=== PATIENT | female | born 1960 | race Caucasian/White ===

== ENCOUNTER 2021-07-27 09:53 | Outpatient (REF) | payer OTHER, SELFPAY ==
--- NOTE | ~2021-07-27 | CT_ITS ---
EXAMINATION: CT CHEST SCREENING CLINICAL INFORMATION: Personal history of nicotine dependence. COMPARISON: CT chest 07/17/2020. TECHNIQUE: Multidetector volumetric CT imaging of the chest is performed without contrast using low dose technique. Additional 2D coronal and sagittal reformatted images and axial 3D maximum intensity projection (MIP) images are generated on the CT workstation. This CT examination was performed using dose optimization techniques as appropriate, variously including the following: Automated exposure control. Adjustment of mA and/or kV according to patient size (this includes techniques or standardized protocols for targeted exams where dose is matched to indication/reason for exam; i.e. extremities or head). Use of iterative reconstruction technique. DLP: 44 mGy-cm FINDINGS: LUNGS: The lungs are well expanded and clear of acute pneumonic process. There are multiple calcified 1-2 mm nodules seen scattered throughout both lungs, the largest nodule in the right upper lobe measuring 2 mm axial image 17/5. There are no noncalcified nodules seen. There is a plate-like atelectasis of left lower lobe. MEDIASTINUM: The heart size and the great vessels are normal in caliber. There is no pericardial effusion. There are no coronary artery calcifications present. The central trachea and the bronchi are widely patent. No abnormal size mediastinal or hilar lymph nodes seen. PLEURA: There is no pleural effusion. No pleural mass or thickening. AXILLA: No lymphadenopathy. UPPER ABDOMEN: Visualized liver, spleen, pancreas and bilateral adrenal glands are unremarkable. OSSEOUS STRUCTURES: Unremarkable. CT/CT lung screening IMPRESSION: Bilateral scattered 1-2 mm calcified lung nodules. No noncalcified nodules or acute consolidation seen. Minimal atelectatic changes in left lung base. ASSESSMENT: Lung-RADS category 2: Benign. RECOMMENDATION: Low-dose annual CT chest.
== END 2021-07-27 09:54 | disposition home or self-care (01) ==
LOC: HO.CT 09:53
PROVIDERS: Visit Provider Physician Assistant Medical
DX: Z12.2 Encounter for screening for malignant neoplasm of respiratory organs (principal); Z87.891 Personal history of nicotine dependence
CPT/HCPCS: 71271

== ENCOUNTER 2022-08-16 09:44 | Outpatient (REF) | payer OTHER, SELFPAY | END 2022-08-16 09:45 | disposition home or self-care (01) | LOC: HO.CT 09:44 | PROVIDERS: Visit Provider Physician Assistant Medical | DX: Z87.891 Personal history of nicotine dependence (principal) | CPT/HCPCS: 71271 ==

== ENCOUNTER 2024-02-28 09:07 | Outpatient (REF) | payer OTHER, SELFPAY ==
--- NOTE | ~2024-02-28 | CT_ITS ---
EXAMINATION: CT CHEST SCREENING CLINICAL INFORMATION: Personal history of nicotine dependence. The patient has a 48 pack-year history of smoking, having quit 15 years ago. COMPARISON: CT chest 08/16/2022. TECHNIQUE: Multidetector volumetric CT imaging of the chest is performed without contrast using low dose technique. Additional 2D coronal and sagittal reformatted images and axial 3D maximum intensity projection (MIP) images are generated on the CT workstation. This CT examination was performed using dose optimization techniques as appropriate, variously including the following: *Automated exposure control *Adjustment of mA and/or kV according to patient size (this includes techniques or standardized protocols for targeted exams where dose is matched to indication/reason for exam; i.e. extremities or head) *Use of iterative reconstruction technique DLP: 39 mGy-cm FINDINGS: LUNGS: Multiple small pulmonary nodules are seen, the majority of which are calcified and stable. No concerning or worrisome nodules are seen. Mild emphysematous changes are present. Mild peribronchial thickening is seen. MEDIASTINUM: The mediastinum is normal. CORONARY ARTERY CALCIFICATION: None visualized on this study. PLEURA: There is no pleural effusion. No pleural mass or thickening. AXILLA: No lymphadenopathy. UPPER ABDOMEN: Unremarkable. OSSEOUS STRUCTURES: Unremarkable. CT/CT lung screening IMPRESSION: Unchanged benign-appearing micronodules many of which are calcified. No evidence to suggest malignancy. ASSESSMENT: Lung-RADS category 2: Benign RECOMMENDATION: Routine annual low-dose CT screening in 12 months.
== END 2024-02-28 09:08 | disposition home or self-care (01) ==
LOC: HO.CT 09:07
PROVIDERS: PCP Internal Medicine; Visit Provider Nurse Practitioner Family
DX: Z12.2 Encounter for screening for malignant neoplasm of respiratory organs (principal); Z87.891 Personal history of nicotine dependence
CPT/HCPCS: 71271

== ENCOUNTER 2025-05-20 08:00 | Outpatient (REF) | payer MEDICARE, SELFPAY ==
--- NOTE | ~2025-05-20 | CT_ITS ---
EXAMINATION: CT LUNG SCREENING HISTORY: Z87.891 - Personal history of nicotine dependence TECHNIQUE: Low dose axial images were obtained from the sternal notch to upper abdomen without IV contrast per standard departmental protocol. Sagittal and coronal reformatted images were also obtained and reviewed. One or more of the following techniques was used for dose reduction: Automated exposure control, adjustment of the mA and/or kV according to patient size, use of iterative reconstruction technique. DLP: 44 mGy-cm COMPARISON: Comparison is made with the prior examination dated 02/28/2024. FINDINGS: Lung nodules: Again seen are numerous tiny calcified granulomas in both lungs. No suspicious noncalcified nodules are identified. Emphysema: none Coronary Calcification: mild Aortic Arch Calcification: mild Potentially Significant Incidentals : none Additional Chest Findings: There is no pleural or pericardial effusion. No mediastinal or axillary lymphadenopathy is identified. Visualized upper abdomen: The visualized portions of the liver, spleen, and adrenals have an unremarkable unenhanced appearance. CT/CT lung screening IMPRESSION: No suspicious pulmonary nodules are identified. LUNG-RADS ASSESSMENT: Lung-RADS 2: Benign MANAGEMENT: Continue annual screening with LDCT in 12 months Category S: N/A Electronically signed by: Fernando Crawford MD 05/20/2025 08:51 AM EDT
--- OUTSIDE RECORDS SUMMARY | 2025-05-20 08:03 | XMS_ITS | Clinical Summary ---
Author Organization [address] Address [address] [place] [phone] Phone Care Team Providers Care Customer Account Representative Name Role Phone Nallely Naik MD Primary Care Prov ider Allergies Active Allergy Reactions Criticality Noted Date Comments Cephalexin Hcl 12/27/2005 Clarithromycin 12/27/2005 Clindamycin Hcl 04/04/2023 Clindamycin Phosphate 01/01/2012 Rash, throat felt like it was closing Erythromycin 12/27/2005 Cyclobenzaprine 01/01/2025 Nightmares, hallucinations Hydrocodone-Guaifenesin 04/04/2023 Morphine, oxycodone, hydrocodone, meloxivam, tramadol Morphine 07/08/2009 Other reaction(s): GI Upset Sulfa (Sulfonamide Antibiotics) Hives 02/02/2010 Tetracycline 09/26/2007 Medications calcium carbonate/vitam in D3 (CALCIUM WITH VITAMIN D3 ORAL) Take by mouth. Activ e miscellaneous medical supply misc Inhale by mouth. Regional pressure 5-15 Active aspirin (Vazalore) 81 mg capsule Take 81 mg by mouth 1 (one) time each day. 04/04/20 23 Active clobetasoL (TEMOVATE) 0.05 % cream To affected area 2-3 times daily for no more than 2-3 weeks, then only using on the weekends prn 08/21/20 23 Active cycloSPORINE (Restasis MultiDose) 0.05 % drops 09/11/20 16 Active hydrocortisone 2.5 % cream Apply topically 2 (two) times a day if needed. TO EARS 05/22/20 23 Active mometasone (ELOCON) 0.1 % ointment 3 (three) times a week. APPLY A THIN LAYER 08/12/20 24 Active naproxen sodium 220 mg capsule Aleve Activ e sodium fluoride-pot nitrate 1.1-5 % paste dental paste See administration instructions. 04/23/20 24 Active rosuvastatin (CRESTOR) 20 mg tablet Take 1 tablet (20 mg total) by mouth 1 (one) time each day. 90 tablet 1 11/14/19 25 Active zolpidem (AMBIEN) 10 mg tabletIndicatio ns:Insomnia, unspecified type Take 1 tablet (10 mg total) by mouth at bedtime as needed for sleep. Max Daily Amount: 10 mg 28 tablet 04/23/20 25 025 Active zolpidem (AMBIEN) 10 mg tabletIndicatio ns:Insomnia, unspecified type Take 1 tablet (10 mg total) by mouth at bedtime as needed for sleep. Max Daily Amount: 10 mg 28 tablet 03/26/20 25 025 Discontin ued(Reord er) Active Problems Problem Noted Date Diagnosed Date Hyperlipidemia 07/28/2023 Coronary artery disease 04/04/2023 Overview (10/15/2024): Improved left main 50%, mid LAD 35%, 30% diagonal vessel and 30% mid circumflex. Normal RCA. Normal LVEF. Intolerant to beta-blockers. Last Assessment & Plan: This delightful 63-year-old female has stable coronary disease with some decreased exercise tolerance for which she will perform an exercise treadmill test. Have a fairly low suspicion for any flow-limiting coronary lesions. I went through the rationale for continued aspirin and low-dose statin. Her lipid profile is excellent. I will check a homocystine and LP(a) to see if 1 of these is her primary risk factor given the fairly benign lipid profile. She will continue a healthy Mediterranean style diet trip, treatment of her sleep apnea and regular exercise Ventricular premature complexes 03/31/2023 Overview (10/15/2024): Last Assessment & Plan: Minimal atrial or ventricular ectopies from a symptomatic standpoint and no findings on her current ECG. Ambulatory monitoring is indicated at this point. Lichen sclerosus 10/20/2022 Overview (10/15/2024): Last Assessment & Plan: Reviewed findings with patient. I counseled her that I agree with Dr. Cain that she has findings consistent with lichen sclerosus. I showed her with a mirror so that she could understand. She reported she had never been using the steroid there as she wasn't really sure of what she was looking at. I explained this is likely an autoimmune inflammatory condition and that the mainstay of therapy is use of maintenance topical steroid. I explained that women with lichen sclerosus are at about a 5 fold increased risk of SCC over the general population. Explained that the purpose of the steroid is to prevent symptoms, further scarring, and squamous cell cancer of the vulva. I also explained the importance of regular follow up to ensure she has no evidence of precancerous or cancerous changes and that she is not having side effects from her medication. I reviewed areas of application and amount of medication to use. She voiced understanding. She was given [facility] information re: LS today and will call with any questions. She will continue mometasone, but will apply to the vulvar areas affected as she was not previously. Asked her to do this three times weekly. Residual hemorrhoidal skin tags 10/20/2022 Overview (10/15/2024): Last Assessment & Plan: I counseled her nothing to do. Keep stools soft. Use prn topical OTC medications. Lidocaine prn. Vaginal atrophy 10/20/2022 Overview (10/15/2024): Last Assessment & Plan: Estrace as noted above. Vulvar atrophy 10/20/2022 Overview (10/15/2024): Last Assessment & Plan: I counseled the patient re: relative safety of topical estradiol as not significantly systemically absorbed. I explained that the highest absorption is likely in the first two weeks while the skin remains thin and atrophic. She was open to this. I recommended pt treat with Estrace cream which should be applied with her finger at the introitus nightly x 2 weeks, then MWF for maintenance. I reviewed amount and area of application and need for ongoing use for effect. I reviewed relative safety of topical localized estradiol therapy. Rotator cuff injury, right, initial encounter Overview (10/15/2024): Status post repair 10/02/2020 Osteoporosis 10/09/2019 Overview (10/15/2024): DEXA 10/07/19 Fibromyalgia 09/20/2019 Overview (10/15/2024): Dr. Jones High serum vitamin B12 05/24/2016 Pilonidal cyst 11/07/2015 Overview (10/15/2024): With abscess and excision Eczema 05/26/2015 CRUZ (obstructive sleep apnea) 12/29/2014 Overview (10/15/2024): onCPAP Last Assessment & Plan: Moderate sleep apnea Compliance report 94% more than 4 hours meeting DME requirements ESS 3 AHI 1.2 Return to clinic in 1 year Herpes simplex disease 09/07/2012 Insomnia 01/21/2008 TMJ syndrome 01/05/2007 Plantar fascial fibromatosis 03/13/2006 Encounters Date Type Department Care Team Description 04/29/2025 9:30 AM EDT Office Visit Adult Medicine [facility] [address] [place] [phone] Dali Becerril PA Breast mass in female (Primary Dx) 04/29/2025 Telephone Adult [facility] [address] [place] [address] Nallely Kelly MD Breast Mass 04/03/2025 Telephone Adult Medicine [facility] [address] [place] [address] Nallely Kelly MD faxed record 04/02/2025 Telephone Adult [facility] [address] [place] [phone] Nallely Guadarrama [place] [facility] 03/25/2025 8:24 AM EDT - 03/25/2025 11:59 PM EDT Hospital Encounter [facility] Bone Density [address] [place] [address] Other osteoporosis, unspecified pathological fracture presence Discharge Disposition: Home or Self Care from Last 3 Months Immunizations Name Administration Dates Next Due Hepatitis B (V[place]-T-Ljirs , Recombivax HB-Adult) 19yo and older 01/13/2022,08/17/2021,07/16/2021 Influenza trivalent, 0.5mL, preservative free (Fluarix; FluLaval; Fluzone) ages 6mo and older (Afluria) 3 years and older 07/24/2024,08/15/2023,08/04/2018,2013,08/29/2013,09/07/2012,09/22/2005 Influenza, Unspecified 08/29/2021,01/01/2018 MMR, measles mumps and rubel la Live (Priorix; M-M-R II) 12mo and older 11/22/2021,03/26/2019 Moderna SARS-CoV-2 COVID-19, mRNA, LNP-S, preservative free 05/22/2022,09/25/2021,03/16/2021,2020 Td Tetanus diptheria (Tdvax) 7yo and older 02/20/2011 Td, Unspecified 07/21/2003 Tdap Tetanus diptheria acell ular pertussis (Boostrix; Adacel) 7yo and older 11/15/2021 Zoster recombinant (Shingrix ) 19yo and older 10/06/2019,07/23/2019 Surgical History Surgery Date Site/Laterality Comments SECTION PROCEDURE: NM DELIVERY ONLY TONSILLECTOMY PROCEDURE: HISTORICAL TONSILLECTOMY OTHER SURGICAL HISTORY PROCEDURE: NM ARTHRS WRST EXC&/RPR TRIANG FIBROCART&/JOINT; COMMENT: both wrists - cyst on left OTHER SURGICAL HISTORY PROCEDURE: NM RHINOPLASTY PRIMARY W/MAJOR SEPTAL REPAIR; COMMENT: deviated septum repair COLONOSCOPY 03.03.10 PROCEDURE: HISTORICAL COLONOSCOPY COLPOSCOPY 1985 PROCEDURE: NM COLPOSCOPY ENTIRE VAGINA W/CERVIX IF PRESENT Medical History Medical History Date Comments Headache(784.0) 03/13/2006 DX:Headache(784. 0) Anxiety state, unspecified DX:An xiety state, unspecified; COMMENT: 02/22/12 pt feels this is resolved Insomnia 01/21/2008 DX:Insomnia; COM MENT: 02/22/12 continues History of shingles 2011 DX:History o f shingles Plantar fascial fibromatosis 03/13/2006 DX: Plantar fascial fibromatosis PMDD (premenstrual dysphoric disorder) 02/07/2008 DX:PMDD (premenstrual dyspho mari disorder) Eczema 05/26/2015 DX:Eczema CRUZ (obstructive sleep apnea) 12/29/2014 DX :CRUZ (obstructive sleep apnea) TMJ syndrome 01/05/2007 DX:TMJ syndrome Pilonidal cyst 11/07/2015 DX:Pilonidal cys t; COMMENT: With abscess and excision Gout 03/13/2006 DX:Gout High serum vitamin B12 05/24/2016 DX:High s diane vitamin B12 Osteoporosis 10/09/2019 DX:Osteoporosis; COMMENT: DEXA 10/07/19 Family History Medical History Relation Name Comments Hypertension Brother 1 Heart attack Father hypertension di ed 72 Stomach cancer Maternal Grandmother Diabetes Mother NH, stroke 72 Arthritis Sister 1 knees Asthma Son 1 Alcohol abuse Son 2 Breast cancer Neg Hx Cancer of Small Bowel Neg Hx Colon cancer Neg Hx Kidney cancer Neg Hx Ovarian cancer Neg Hx Pancreatic cancer Neg Hx Uterine cancer Neg Hx Relation Name Status Comments Brother 1 Brother 2 Alive Father Maternal Grandfather Maternal Grandmother Mother Paternal Grandmother Sister 1 Sister 2 Alive Son 1 Son 2 Social History Tobacco Use Types Packs/Day Years Used Date Smoking Tobacco: Former Cigarettes 0.5 21.3 1 - 12/14/1998 Smokeless Tobacco: Never Tobacco Cessation:Counseling Given: Not Answered Alcohol Use Standard Drinks/Week Comments No 0 (1 standard drink = 0.6 oz pur e alcohol) Housing Instability Answer Date Recorde d Are you worried that in the next 2 months you may not have stable housing? No 01/08/2025 Food Access & Nutrition Answer Date Rec orded Do you have access to a vari ety of food including fruits and vegetables? Yes 01/08/2025 Access to Healthcare Answer Date Record ed Within the last 3 months, ho w many times did you visit the emergency department for your medical care? 0 01/08/2025 Health Literacy Answer Date Recorded How often do you need to hav e someone help you when you read instructions, pamphlets, or other written material from your doctor or pharmacy? Never 01/08/2025 Caregiver: How often do you need to have someone help you when you read instructions, pamphlets, or other written material from your doctor or pharmacy? Not on file 01/08/2025 Financial Risk Answer Date Recorded How hard is it for you to pa y for the very basics like food, housing, medical care, and air conditioning / heating? Not very hard 01/08/2025 Transportation Answer Date Recorded Has the lack of transportati on kept you from meetings, work, or from getting things needed for daily living? No Has the lack of transportati on kept you from medical appointments or from getting medications? No 01/08/2025 Social Isolation Answer Date Recorded How often do you feel lonely or isolated from th ose around you? Never 01/08/2025 Food Risk Answer Date Recorded Within the past 12 months we worried whether our food would run out before we got money to buy more. Never true 01/08/2025 Within the past 12 months th e food we bought just didn't last and we didn't have money to get more. Never true 01/08/2025 Dependent Care Answer Date Recorded Do you need help finding or paying for care for your loved ones. For example, child care specialist or elderly care for an older adult? No 01/08/2025 Education Answer Date Recorded Do you think completing more education or training, like finishing a GED, going to college, or learning a trade, would be helpful for you? No 01/08/2025 Employment and Income Answer Date Recor ded During the last four weeks, have you been actively looking for work? No 01/08/2025 Living Situation Answer Date Recorded What is your living situation? 0 01/08/2025 Comments No Sex and Gender Information Value Date Recorded Sex Assigned at Female 02/17/2025 8:06 AM EDT Legal Sex Female 1:01 AM EST Gender Identity Female 02/17/2025 8:06 AM EDT Sexual Orientation Not on file Obstetrics History Last Filed Vital Signs Vital Sign Reading Time Taken Comments Blood Pressure 124/68 04/29/2025 9:43 AM EDT Pulse 72 04/29/2025 9:43 AM EDT Temperature 36.1 C (97 F) 04/29/2025 9:43 AM EDT Respiratory Rate - - Oxygen Saturation - - Inhaled Oxygen Concentration - - Weight 61.1 kg (134 lb 9.6 oz) 04/29/2025 9:43 A M EDT Height 160 cm (5' 3 ) 04/29/2025 9:43 AM EDT Body Mass Index 23.84 04/29/2025 9:43 AM EDT Plan of Treatment Upcoming Encounters Date Type Department Care Team (Late st Contact Info) Description 06/10/2025 9:00 AM EDT Office Visit Pulmonolgy - [place] [address] [facility] [address] [place] [phone] Mp Finn MD 175 [facility] [address] [place] [address] 07/01/2025 8:45 AM EDT Office Visit Adult Medicine - [place] [address] [place] [phone] Lilliana Huerta PA [address] [place] [address] 08/12/2025 9:25 AM EDT Office Visit [facility] [address] [facility] [address] [place] [phone] Hieu Fry MD 300 [facility] [address] [place] [address] Health Maintenance Due Date Last Done Comments Medicare Annual Wellness Visit 10/21/2022 COVID-19 Vaccine ( season) 2024 07/19/2024, 08/18/2023, 05/22/2022, Additional history exists Influenza Vaccine (#1) 2025 , 08/15/2023, 08/29/2021, Additional history exists Depression Screening 01/01/2026 01/01/2025 Falls Risk Assessment 01/01/2026 01/01/2025 Hypertension/CHF/CAD Annual BMP Blood Test 02/13/2026 02/13/2025, 08/08/2023 Breast Cancer Screening 05/13/2026 05/13/2024, 04/07 Cervical Cancer Screening: HPV 08/20/2026 08/20/2021 Cholesterol Screening (Lipid Panel) 02/13/2030 02/13/2025, 01/17/2024, 02/19/2011 DTaP,Tdap,and Td Vaccines (6 - Td or Tdap) 11/15/2031 11/15/2021, 02/23/2011, 02/20/2011, Additional history exists Colorectal Cancer Screening: Colonoscopy 08/14/2034 08/14/2024 RSV Immunization Adult Patients (1 - 1-dose 75+ series) 2034 Osteoporosis Screening (Bone Density Screening) 03/25/2035 03/25/2025, 01/10/2024, 10/12/2021, Additional history exists Zoster Vaccines Completed 10/06/2019, 07/23/2019 Hepatitis C Screening Completed 07/06/2021 MMR Vaccines Aged Out 11/22/2021, 03/26/2019 No lo nger eligible based on patient's age to complete this topic Hepatitis B Vaccines Completed 01/13/2022, 08/17/2021, 07/16/2021 Social Influencers of Health Screening Discontinued 01/08/2025 HIB Vaccines Aged Out No longer eligi ble based on patient's age to complete this topic HPV Vaccines Aged Out No longer eligi ble based on patient's age to complete this topic Hepatitis A Vaccines Aged Out No long er eligible based on patient's age to complete this topic IPV Vaccines Aged Out No longer eligi ble based on patient's age to complete this topic Meningococcal ACWY Vaccine Aged Out N o longer eligible based on patient's age to complete this topic Meningococcal B Vaccine Aged Out No l onger eligible based on patient's age to complete this topic Pneumococcal Vaccine: 50+ Years Discontinued RSV Immunization Patients Under 20 months Aged Out No longer eligible based on patient's age to complete this topic Varicella Vaccines Aged Out No longer eligible based on patient's age to complete this topic Procedures Procedure Name Priority Date/Time Associated Diagnosis Comments DRUG ABUSE SCREEN EXPANDED WITH REFLEX CONFIRMATION, URINE Routine 04/03/2025 2:53 PM EDT Chronic pain syndrome BD BONE DENSITY DXA AXIAL SKELETON Routine 03/25/2025 8:53 AM EDT Other osteoporosis, unspecified pathological fracture presence BASIC METABOLIC PANEL Routine 02/13/2025 8:46 AM EDT Routine general medical examination at a health care facility LIPID PANEL WITH REFLEX TO DIRECT LDL Routine 02/13/2025 8:46 AM EDT Routine general medical examination at a health care facility HM COLONOSCOPY Routine 08/14/2024 HM HPV Routine 08/20/2021 HM HEPATITIS C SCREENING Routine 07/06/2021 from Last 3 Months or Most Recently Relevant to Health Maintenance Results * Drug abuse screen expanded with reflex confirmation, urine (04/03/2025 2:53 PM EDT) Amphetamine Screen, Ur Negative Negative LAB CHEMISTRY METHOD 04/04/2025 4:31 AM [facility] Comment:Certain OTC medicati ons containing ephedrine, phenylephrine, pseudoephedrine and phenylpropanolamine can cause false positive results. Barbiturate Screen, Ur Negative Negative LAB CHEMISTRY METHOD 04/04/2025 4:31 AM [facility] Benzodiazepine Screen, Ur Negative Negative LAB CHEMISTRY METHOD 04/04/2025 4:31 AM [facility] Cocaine Screen, Ur Negative Negative LAB CHEMISTRY METHOD 04/04/2025 4:31 AM [facility] Opiate Screen, Ur Negative Negative LAB CHEMISTRY METHOD 04/04/2025 4:31 AM [facility] Cannabinoid (THC) Screen, Ur Negative Negative LAB CHEMISTRY METHOD 04/04/2025 4:31 AM [facility] Comment:Specimens from patie nts taking pantoprazole sodium (Protonix) have been shown to produce false positive results. Fentanyl, Ur Negative Negative LAB CHEMISTRY METHOD 04/04/2025 4:[address] [facility] Oxycodone Screen, Ur Negative Negative LAB CHEMISTRY METHOD 04/04/2025 4:[address] [facility] Urine Urine specimen obtained by clean catch procedure / Unknown Non-blood Collection / Unknown 04/03/2025 2:53 PM EDT 04/03/2025 2:[address] [facility] - 04/04/2025 4:31 AM EDT Assay cutoffs: Amphetamines 1000 ng/mL Barbiturates 200 ng/mL Benzodiazepines 200 ng/mL Cocaine 300 ng/mL Fentanyl 1 ng/mL Opiates 300 ng/mL Oxycodone 100 ng/mL THC 50 ng/mL Semi-quantitative assay for screening purposes only. Unconfirmed screening result should not be used for non-medical purposes. *POSITIVE RESULTS ARE AUTOMATICALLY SENT FOR ALTERNATE METHOD CONFIRMATION* us Nallely Naik MD LAB URINE ORDERABL ES Final Result [facility] [address] [place] [address], * BD Bone Density DXA Axial Skeleton (03/25/2025 8:53 AM EDT) Anatomical Region Laterality Modality Wrist, Hip, L-spine Bone Densito metry 03/25/2025 11:4 4 AM EDT Impressions 03/25/2025 11:46 AM EDT 1. Osteoporosis. There has been a decrease of 0.9% in bone mineral density in the lumbar spine since the prior examination of 01/10/2024. There has been a decrease of 2.2% in bone mineral density in the right femur and a decrease of 4.3% in bone mineral density in the left femur. 2. FRAX analysis yields a 10-year probability of major osteoporotic fracture of 17.7% and a 10-year probability of hip fracture of 5.7%. Code 90616 -------- FINAL REPORT -------- Dictated By: Law Hale Dictated Date: 03/25/2025 11:44 ET Assigned Physician: Law Hale Reviewed and Electronically Signed By: Law Hale Signed Date: 03/25/2025 11:46 ET Workstation ID: [id number] Transcribed By: Self Edit Transcribed Date: 03/25/2025 11:44 ET Narrative 03/25/2025 11:46 AM EDT HISTORY: The patient is a 64-year-old postmenopausal female with clinical concern for metabolic bone disease. FINDINGS: Dual energy x-ray absorptiometry of the lumbar spine and femurs is performed. The mean bone mineral density at L1-L4 is 0.778 gm/cm2 which is 66% of that of young normals and 80% of that of age matched controls. This yields a T-score of -3.3 and a Z-score of -1.6 which is diagnostic of osteoporosis. The mean bone mineral density of the femurs bilaterally is 0.640 gm/cm2 which is 63% of that of young normals and 76% of that of age matched controls. This yields a T-score of -2.9 and a Z-score of -1.6 which is diagnostic of osteoporosis. The T-score of the right femoral neck is -3.1 and that of the left femoral neck is 2.5 which is diagnostic of osteoporosis. Procedure Note Law Hale MD - 03/25/2025 HISTORY: The patient is a 64-year-old postmenopausal female with clinicalconcern for metabolic bone disease. FINDINGS: Dual energy x-ray absorptiometry of the lumbar spine and femursis performed. The mean bone mineral density at L1-L4 is 0.778 gm/cm2 whichis 66% of that of young normals and 80% of that of age matched controls.This yields a T-score of -3.3 and a Z-score of -1.6 which is diagnostic ofosteoporosis. The mean bone mineral density of the femurs bilaterally is 0.640 gm/hv3kzver is 63% of that of young normals and 76% of that of age matchedcontrols. This yields a T-score of -2.9 and a Z-score of -1.6 which isdiagnostic of osteoporosis. The T- score of the right femoral neck is -3.1and that of the left femoral neck is 2.5 which is diagnostic ofosteoporosis. IMPRESSION: 1. Osteoporosis. There has been a decrease of 0.9% in bone mineraldensity in the lumbar spine since the prior examination of 01/10/2024.There has been a decrease of 2.2% in bone mineral density in the rightfemur and a decrease of 4.3% in bone mineral density in the left femur. 2. FRAX analysis yields a 10-year probability of major osteoporoticfracture of 17.7% and a 10-year probability of hip fracture of 5.7%. Code 76527 -------- FINAL REPORT -------- Dictated By: Law Hale Dictated Date: 03/25/2025 11:44 ET Assigned Physician: Law Hale Reviewed and Electronically Signed By: Law Hale Signed Date: 03/25/2025 11:46 ET Workstation ID: [id number] Transcribed By: Self Edit Transcribed Date: 03/25/2025 11:44 ET us Nallely Naik MD IM DXA PROCEDURES Final Result * Lipid panel with reflex to direct LDL (02/13/2025 8:46 AM EDT) Cholesterol 147 0 - 200 mg/dL LAB CHEMISTRY METHOD 02/13/2025 1:[address] [facility] Triglycerides 34 0 - 150 mg/dL LAB CHEMISTRY METHOD 02/13/2025 1:[address] [facility] HDL 87 >=40 mg/dL LAB CHEMISTRY METHOD 02/13/2025 1:[address] [facility] LDL Calculated 53 0 - 100 mg/dL LAB CHEMISTRY METHOD 02/13/2025 1:[address] [facility] VLDL Cholesterol Jaguar 6.8 mg/dL LAB CHEMISTRY METHOD 02/13/2025 1:[address] [facility] Non HDL Chol. (LDL+VLDL) 60 <145 mg/dL LAB CHEMISTRY METHOD 02/13/2025 1:52 PM [facility] Chol/HDL Ratio 1.7 0.0 - 4.4 LAB CHEMISTRY METHOD 02/13/2025 1:52 PM [facility] Blood Venous blood specimen / Unknown Venipuncture / Unknown 02/13/2025 8:46 AM EDT 02/13/2025 8:46 AM EDT us Nallely Naik MD LAB BLOOD ORDERABL ES Final Result [facility] [address] [place] [address], * Basic metabolic panel (02/13/2025 8:46 AM EDT) Sodium 142 133 - 145 mmol/L LAB CHEMISTRY METHOD 02/13/2025 1:50 PM [facility] Potassium 4.1 3.5 - 5.5 mmol/L LAB CHEMISTRY METHOD 02/13/2025 1:50 PM [facility] Chloride 107 96 - 110 mmol/L LAB CHEMISTRY METHOD 02/13/2025 1:50 PM [facility] CO2 30 21 - 32 mmol/L LAB CHEMISTRY METHOD 02/13/2025 1:50 PM [facility] Anion Gap 5 3 - 11 LAB CHEMISTRY METHOD 02/13/2025 1:50 PM [facility] Glucose 79 70 - 100 mg/dL LAB CHEMISTRY METHOD 02/13/2025 1:50 PM [facility] BUN 23 5 - 25 mg/dL LAB CHEMISTRY METHOD 02/13/2025 1:50 PM [facility] Creatinine 0.56 0.50 - 1.10 mg/dL LAB CHEMISTRY METHOD 02/13/2025 1:50 PM [facility] eGFR 101 >=60 mL/min/1. 73m2 LAB CHEMISTRY METHOD 02/13/2025 1:[address] [facility] Comment:Calculation based on the Chronic Kidney Disease Epidemiology Collaboration (CKD-EPI) equation refit without adjustment for race. BUN/Creatinine Ratio 41.1 LAB CHEMISTRY METHOD 02/13/2025 1:[address] [facility] Calcium 9.3 8.5 - 10.5 mg/dL LAB CHEMISTRY METHOD 02/13/2025 1:[address] [facility] Blood Venous blood specimen / Unknown Venipuncture / Unknown 02/13/2025 8:46 AM EDT 02/13/2025 8:46 AM EDT Nallely Naik MD LAB BLOOD ORDERABL ES Final Result [facility] [address] [place] [address], * Colonoscopy (08/14/2024) [facility] Colonoscopy No interpretation , abstracted Anatomical Region Laterality Modality Other [facility] Provider HEALTH MAINTENANCE Final Result * Cervical Cancer Screening: HPV (08/20/2021) [facility] Cervical Cancer Screening: HPV Negative, abstracted [facility] [place] HEALTH MAINTENANCE Final Result * Hepatitis C Screening (07/06/2021) [facility] Hepatitis C Screening Abstracted [facility] [place] [facility] MAINTENANCE Final Result from Last 3 Months or Most Recently Relevant to Health Maintenance Insurance MEDICARE [employer] MEDICARE MEDICAID - [place] Care Teams Customer Account Representative Relationship Specialty Start Date End Date Nallely Naik MD PCP - General Internal Medicine 12/20/11
--- OUTSIDE RECORDS SUMMARY | 2025-05-20 08:03 | XMS_ITS | Clinical Summary ---
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 Nallely Naik MD Primary Care Prov ider Allergies Active Allergy Reactions Criticality Noted Date Comments Cephalexin Nausea Only 07/02/2009 20-25 ysr ago Clarithromycin Nausea Only 02/02/2010 Angioedema of tongue but No problems with azithromycin Clindamycin 12/17/2021 Erythromycin 12/03/2010 Other reaction(s): Airway Restriction Erythromycin Base 12/17/2021 Hydrocodone-Acetaminoph en Nausea And Vomiting 12/17/2021 Meloxicam Other (See Comments) 12/17/2021 Morphine 12/17/2021 Oxycodone Other (See Comments) 12/17/2021 Sulfa Antibiotics Hives 02/02/2010 Tetracycline 07/02/2009 20yrs ago ?hives or fairy tongue ? Tongue issues, some dysphagia Tramadol 12/17/2021 Other reaction(s): Hallucinations Medications Medication Sig Dispensed Refills Start Date End Date Status zolpidem (AMBIEN) 10 MG tablet Take 10 mg by mouth. 0 08/23/2011 Active [place]-3 Fatty Acids (Fish Oil) 1000 MG CAPS Take 1 capsule by mouth daily. 0 02/02/2010 Active Naproxen Sodium (ALEVE PO) Take 220 mg by mouth. 0 12/22/2016 Active naproxen (NAPROSYN) 500 MG tablet Take 500 mg by mouth. 0 05/17/2011 Active Restasis 0.05 % ophthalmic emulsion Place 1 drop into both eyes 2 (two) times a day. 0 11/07/2021 Active predniSONE (DELTASONE) tablet 10 mg 3 tabs QD x 3 days, 2 tabs QD x 3 days, 1 tab QD x 3 days 18 tablet 0 12/17/2021 Active Active Problems No known active problems Family History Medical History Relation Name Comments Cancer Brother Hypertension Brother Heart disease Father Hypertension Father Diabetes Mother Heart disease Mother Hyperlipidemia Mother Hypertension Mother Hypertension Sister Relation Name Status Comments Brother Father Mother Sister Social History Tobacco Use Types Packs/Day Years Used Date Smoking Tobacco: Never Smokeless Tobacco: Never Alcohol Use Standard Drinks/Week Comments Not Currently 0 (1 standard drink = 0.6 oz pur e alcohol) Sex and Gender Information Value Date Recorded Sex Assigned at Female 12/17/2021 8:48 AM EST Gender Identity Female 12/17/2021 8:48 AM EST Sexual Orientation Not on file Job Start Date Occupation Industry Not on file Not on file Not on file Last Filed Vital Signs Vital Sign Reading Time Taken Comments Blood Pressure - - Pulse - - Temperature - - Respiratory Rate - - Oxygen Saturation - - Inhaled Oxygen Concentration - - Weight 63 kg (139 lb) 07/21/2022 11:45 AM EDT Height 165.1 cm (5' 5 ) 07/21/2022 11:45 AM EDT Body Mass Index 23.13 07/21/2022 11:45 AM EDT Plan of Treatment Health Maintenance Due Date Last Done Comments Hepatitis C Screening 1959 COVID-19 Vaccine (#1) 03/09/1960 Depression Screening 1971 Preventative Health Evaluation 1977 Cervical Cancer Screening (Pap Smear) 1980 Colon Cancer Screening (Colonoscopy) 2004 Breast Cancer Screening (Mammogram) 2009 Shingrix-Zoster Vaccine (1 o f 2) 2009 DTap / Tdap / Td (2 - Td or Tdap) 02/23/2021 02/23/2011, 02/02/2001 Fall Risk Assessment 2024 Osteoporosis Screening (DEXA Scan) 2024 Pneumococcal Vaccine (1 of 1 - PCV) 2024 Influenza Vaccine (#1) 2025 01/01/2018 RSV Adult > 60+ Yrs or (1 - 1-dose 75+ series) 2034 Hepatitis B Vaccines Aged Out No long er eligible based on patient's age to complete this topic Pneumococcal Vaccine Aged Out No long er eligible based on patient's age to complete this topic RSV Ped < 20 months Aged Out No longe r eligible based on patient's age to complete this topic Care Teams Drywall Finishing Foreman Relationship Specialty Start Date End Date Nallely Naik MD PCP - General Internal Medicine 08/23/21
--- OUTSIDE RECORDS SUMMARY | 2025-05-20 08:03 | XMS_ITS | Patient Health Record ---
Author Organization [facility] Address [address] [facility] [address] [place] [address] Care Team Providers Care Side Gluer Name Role Phone Nallely Naik Primary Care Provide r Unavailable MAIRA TAYLOR Unavailable [phone] Allergies Allergen (clinical drug ingredient) Drug/Non Drug Allergy documented on EMR Reaction Allergy Type Onset Date Status Tetracyrex (uncoded) Unknown Allergy Active Biaxin Unknown Drug Allergy Active cephalexin Cephalexin Unknown Drug Allergy Activ e clindamycin Clindamycin HCl Unknown Drug Allergy Active clindamycin Clindamycin Phosphate Unknown Drug Allergy Active erythromycin Erythromycin Unknown Drug Allergy A ctive tetracycline Tetracycline HCl Unknown Drug Allergy Active Substance with sulfonamide structure and antibacterial mechanism of action (substance) Sulfa Antibiotics Unknown Drug Allergy Active clarithromycin Clarithromycin Unknown Drug Allergy Active morphine Morphine Unknown Drug Allergy Active Reason For Referral No Information Medications Medication SIG (Take, Route, Frequency, Duration) Notes Start Date End Date Status Naproxen Sodium 220 MG 1 capsule with fo od or milk as needed Orally every 12 hrs Active Rosuvastatin Calcium 20 MG 1 tablet Orally Once a day Not-Taking Lidocaine 5 % 1 patch remove after 12 hours Externally Once a day Not-Taking Mometasone Furoate 0.1 % 1 application Externally Once a day Not-Taking Vitamin D Not-Taking Vitamin E Complete N ot-Taking Gabapentin 300 MG 1 capsule Orally Onc e a day Not-Taking Temovate 0.05 % 1 application Externally weekly Active Turmeric Curcumin No t-Taking Magnesium 250 MG 1 tablet with a meal Orally Once a day Not-Taking Calcium Carbonate-Vitamin D3 Active Restasis 0.05 % 1 drop into affected eye Ophthalmic Twice a day Not-Taking cycloSPORINE 0.05 % 1 drop into affected eye Ophthalmic Twice a day Active Fish Oil [place]-3 Not -Taking Zolpidem Tartrate 10 MG 1 tablet at bedt kai as needed Orally Once a day Active Aspirin 81 MG 1 capsule Orally Onc e a day Not-Taking Naproxen Not-Taking Problems Problem Type SNOMED Code ICD Code Onset Dates Problem Status W/U Status Risk Notes Problem [id number] Idiopathic peripheral neuropathy (G60.9) Active confirmed Vital Signs Height 63.5 in 04/16/2025 Weight 133.3 lbs 04/16/2025 BMI 23.24 kg/m2 04/16/2025 Encounters Encounter Location Date Provider Diagnosis [facility] [address] [id number] 04/16/2025 MAIRA TAYLOR Pain in right toe(s) M79.674 ; Pain in left toe(s) M79.675 and Idiopathic peripheral neuropathy G60.9 [facility] [address] 04/01/2025 MAIRA TAYLOR Assessments Encounter Date Diagnosis (ICD Code) Assessment Notes Treatment Notes Treatment Clinical Notes Section Notes 04/16/2025 Pain in right toe(s) (ICD-10 - M79.674) Patient examined and evaluated. Past medical history reviewed. She has chronic pain to both feet around the toes. She has tried numerous treatmetns of inserts, sneaker changes, surgery, and gabapentin without any relief. I discussed with her that it sounds like small fiber peripheral neuropathy. Likely idiopathic or due to underlying MCTD. I don't have any treatments that I can offer that will resolve this for her. I gave her recommendations on [employer] sneakers to allow for better support and wider toe box. I also gave her some gel toe sleeves to help with any rubbing. We discussed topicals like voltaren and EMLA as a potential option for pain control. She did ask about Leneva for fat pad rastafarian. I did stress that this would not make much of a difference for her. She expressed understanding. She can follow back with me as needed. I encouraged her to call if she has any additional questions or concerns. 04/16/2025 Pain in left toe(s) (ICD-10 - M79.675) 04/16/2025 Idiopathic peripheral neuropathy (ICD-10 - G60.9) Plan Of Treatment Pending Test Test Name Order Date trim skin lesion 2-4 08/19/2020 Insurance Providers Payer Name Payer Address Payer Phone Subscriber Number Group Number Insured Name Patient Relationship to Insured Coverage Start Date Coverage End Date [employer] Medicare [id number] [address] [address] [place] [phone] [id number] Jaycee Barrios Self - patient is the insured Medical (General) History Medical History History ICD Code Age-related osteoporosis without current pathological fracture M81.0 Fibromyalgia M79.7 Pilonidal cyst without abscess L05.91 Dermatitis, unspecified L30.9 Obstructive sleep apnea (adult) (pediatr ic) G47.33 Herpesviral infection, unspecified B00.9 Premenstrual dysphoric disorder F32.81 Insomnia, unspecified G47.00 Arthralgia of temporomandibular joint, u nspecified side M26.629 hyperlipidemia coronary artery disease ventricular premature complexes lichen sclerosus Surgical History Surgery Date(Month/Year) Right second patsy osteotomy 2019 TMJ surgery 2024 Bilateral rotator cuff surgeries
== END 2025-05-20 08:01 | disposition home or self-care (01) ==
LOC: HO.CT 08:00
PROVIDERS: PCP Internal Medicine; Visit Provider Physician Assistant Medical
DX: Z12.2 Encounter for screening for malignant neoplasm of respiratory organs (principal); Z87.891 Personal history of nicotine dependence
CPT/HCPCS: 71271

== ENCOUNTER → 2025-05-20 08:02 | Outpatient (BNV) | payer MEDICARE, SELFPAY | PROVIDERS: PCP Internal Medicine; Visit Provider Radiology Diagnostic Radiology | DX: Z87.891 Personal history of nicotine dependence (principal) | CPT/HCPCS: 71271 ==